=== PATIENT | male | born 2000 | race Two or more races ===

== ENCOUNTER 2021-09-10 17:43 | Emergency (ER) | payer OTHER, SELFPAY ==
[2021-09-10 17:43] VITALS: BP 140/86; PULSE 98; RESP 18; TEMP 36.8; O2SAT 100; BMI 17.9
--- NOTE | 2021-09-10 17:43 | ECG_ITS ---
APPROVED REPORT Exam: Resting ECG HR:90 bpm ECG Measurements Heart Rate 90 AXES NE 133 P 78 QRSd 90 QRS 79 QT 329 T 53 QTc 376 Conclusion SINUS RHYTHM NONSPECIFIC T-WAVE ABNORMALITY BORDERLINE ECG UNCONFIRMED REPORT Electronically signed by : Augusto Sunshine MD 09/12/2021 08:05:25
--- NOTE | 2021-09-10 18:09 | XR_ITS ---
PROCEDURE INFORMATION: Exam: XR Chest Exam date and time: 09/10/2021 6:28 PM Age: 21 years old Clinical indication: Sternal or substernal pain; Additional info: Cp TECHNIQUE: Imaging protocol: Radiologic exam of the chest. Views: 1 view. COMPARISON: No relevant prior studies available. FINDINGS: Lungs: Unremarkable. No consolidation. Pleural spaces: Unremarkable. No pleural effusion. No pneumothorax. Heart/Mediastinum: Unremarkable. No cardiomegaly. Bones/joints: Unremarkable. IMPRESSION: No acute findings.
[2021-09-10 18:15] VITALS: BP 124/79; PULSE 76; RESP 12; O2SAT 98
[2021-09-10 18:23] LABS: Basophils # 0.1 K/mm3 (0-0.2); Basophils % 1.2 % (0.1-2.0); Eosinophils # 0.1 K/mm3 (0.0-0.4); Hematocrit 45.6 % (42.0-52.0); Lymphocytes # 2.6 K/mm3 (0.7-4.5); Lymphocytes % 36.9 % (10-50); Mean Corpuscular HGB Conc 32.8 g/dL (31.8-35.4); Mean Corpuscular Hemoglobin 28.7 pg (27.0-31.2); Mean Corpuscular Volume 87.6 fl (80-94); Mean Platelet Volume 7.9 fl (7.4-10.4); Monocytes # 0.4 K/mm3 (0.1-1.0); Monocytes % 5.9 % (1.7-9.3); Neutrophils # 3.8 K/mm3 (1.8-7.8); Platelet Count 250 K/mm3 (142-424); Red Blood Count 5.21 M/mm3 (4.60-6.20); Red Cell Distribution Width 12.6 % (11.5-17.5)
[2021-09-10 18:40] LABS: Chloride 109 mmol/L (98-107); Potassium 3.4 mmoL/L (3.5-5.1); Sodium 142 mmol/L (136-145)
[2021-09-10 18:43] LABS: Anion Gap 10.4 mEq/L (5-15); Blood Urea Nitrogen 10 mg/dl (9-20); Carbon Dioxide 26 mmol/L (22.0-30.0); Creatinine Clearance Estimated 102 mL/min (50-200); Estimated Glomerular Filt Rate 105 ml/min (>60); GFR (African American) 127 ML/MIN (>60)
[2021-09-10 18:44] LABS: Calcium 9.5 mg/dl (8.4-10.2); Glucose 114 mg/dl (74-100)
[2021-09-10 19:00] VITALS: BP 128/80; PULSE 79; RESP 15; O2SAT 97
--- NOTE | 2021-09-10 19:07 | PC.NURSE ---
Pt c/o JEAN. Tylenol and Ibuprofen offered, but refused by pt because he stated Im immune to them. They don't work for me. I need something stronger . Pt was told that we will notify MD when he returns out of another pt's room.
[2021-09-10 19:10] LABS: Troponin I < 0.01 ng/ml (0.00-0.034)
[2021-09-10 19:30] VITALS: BP 118/82; RESP 10
--- NOTE | 2021-09-10 19:48 | HMH.EDGENADL ---
ED Disposition Clinical Impression: Atypical chest pain Disposition: Home, Self-Care Condition on Discharge: Good Instructions: DI for Atypical Chest Pain Additional Instructions: Follow-up with your physicians at [facility] as arranged. Referrals: Provider,Referral, [Primary Care Provider] - - Critical Care Critical Care Time: No Attestation: On 09/10/21, the high probability of a clinically significant, sudden or life threatening deterioration of the following system(s) required my full and direct attention, intervention and personal management. The time I documented below is in addition to time spent performing reported procedures but includes the following listed in this critical care notation. Medical Decision Making - Medical Records Medical records reviewed: Yes: I reviewed the patient's medical records. MR Comment: I reviewed records from [facility] via [employer]. Reviewed MRI brain which showed asymmetry of the hippocampi and a subtle small area of increased signal in the cerebellum. He recently had a normal EEG. 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 It is benign. Cardiology reports that he has syncopal episodes likely related to migraines and vasovagal syncope and they do not feel further cardiac work-up or intervention was indicated. - Pj Inquiry Pt receiving controlled substance: No Vital Signs: 09/10/21 17:43 09/10/21 18:15 09/10/21 19:00 Temperature 98.3 F Temperature Source Oral Pulse Rate 76 79 Pulse Rate [Right Radial] 98 H Respiratory Rate 18 12 15 Blood Pressure 124/79 128/80 Blood Pressure [Right Arm] 140/86 Blood Pressure Mean [Right Arm] 104 Blood Pressure Source [Right Arm] Automatic Cuff Blood Pressure Position [Right Arm] Sitting 02 Sat by Pulse Oximetry 100 98 97 Oxygen Delivery Method Room Air Room Air 09/10/21 19:30 09/10/21 20:00 Temperature Temperature Source Pulse Rate Pulse Rate [Right Radial] Respiratory Rate 10 L 11 L Blood Pressure 118/82 128/73 Blood Pressure [Right Arm] Blood Pressure Mean [Right Arm] Blood Pressure Source [Right Arm] Blood Pressure Position [Right Arm] 02 Sat by Pulse Oximetry 98 Oxygen Delivery Method Room Air - Lab Data Lab Results 09/10/21 18:00: WBC 7.0, RBC 5.21, Hgb 15.0, Hct 45.6, MCV 87.6, MCH 28.7, MCHC 32.8, RDW 12.6, Plt Count 250, MPV 7.9, Neut % (Auto) 55.0, Lymph % (Auto) 36.9, Tama % (Auto) 5.9, Eos % (Auto) 1.0, Baso % (Auto) 1.2, Neut # (Auto) 3.8, Lymph # (Auto) 2.6, Tama # (Auto) 0.4, Eos # (Auto) 0.1, Baso # (Auto) 0.1 09/10/21 18:00: Sodium 142, Potassium 3.4 L, Chloride 109 H, Carbon Dioxide 26, Anion Gap 10.4, BUN 10, Creatinine 0.90, Estimated Creat Clear 102, Estimated GFR 105, Est GFR ( Amer) 127, Glucose 114 H, Calcium 9.5, Troponin I < 0.01 Result diagrams: 09/10/21 18:00 09/10/21 18:00 Orders (Tests/Meds): ED MEDICATIONS Generic Name Dose Route Start Last Admin Trade Name Freq PRN Reason Stop Dose Admin Sodium Chloride 10 ml 09/10/21 18:09 Sodium Chloride 0.9% 10ml Flush Syringe IV 10/10/21 18:08 NEEDED PRN Maintain IV Site ORDERS Category Date Time Status Troponin I Q3H Lab 09/10/21 21:15 Ordered Troponin I Q3H Lab 09/11/21 00:15 Ordered - Radiology Data #1 Image(s): Chest Image Reviewed: Yes I have reviewed radiologist's interpretation PROCEDURE INFORMATION: Exam: XR Chest Exam date and time: 09/10/2021 6:28 PM Age: 21 years old Clinical indication: Sternal or substernal pain; Additional info: Cp TECHNIQUE: Imaging protocol: Radiologic exam of the chest. Views: 1 view. COMPARISON: No relevant prior studies available. FINDINGS: Lungs: Unremarkable. No consolidation. Pleural spaces: Unremarkable. No pleural effusion. No pneumothorax.
--- NOTE | 2021-09-10 19:50 | PC.NURSE ---
at speaking with pt about POC
[2021-09-10 20:00] VITALS: BP 128/73; RESP 11; O2SAT 98
[2021-09-10 20:28] VITALS: BP 128/73; PULSE 68; RESP 16; TEMP 37.1; O2SAT 97
== END 2021-09-10 20:30 | disposition home or self-care (01) ==
PROVIDERS: Emergency Provider Emergency Medicine
DX: R07.2 Precordial pain (principal); R06.02 Shortness of breath; R20.2 Paresthesia of skin; R55 Syncope and collapse; R10.13 Epigastric pain; I51.9 Heart disease, unspecified; R51.9 Headache, unspecified; M79.10 Myalgia, unspecified site; G89.29 Other chronic pain; G93.9 Disorder of brain, unspecified; F17.290 Nicotine dependence, other tobacco product, uncomplicated
CPT/HCPCS: 71045; 80048; 84484; 85025; 93005; 99285

== ENCOUNTER 2022-11-27 18:23 | Emergency (ER) | payer OTHER, SELFPAY ==
[2022-11-27 18:41] VITALS: BP 136/82; PULSE 91; RESP 19; TEMP 37; O2SAT 100; BMI 19.8
--- NOTE | 2022-11-27 18:45 | XR_ITS ---
PROCEDURE INFORMATION: Exam: XR Chest Exam date and time: 11/27/2022 6:46 PM Age: 22 years old Clinical indication: Cough; Additional info: Cough, congestion TECHNIQUE: Imaging protocol: Radiologic exam of the chest. Views: 2 views. COMPARISON: CR XR CHEST PORTABLE 09/10/2021 6:28 PM FINDINGS: Lungs: No evidence of acute pulmonary disease or infiltrates; lung [place] appear clear. Pleural spaces: No evidence of pleural effusion, pneumothorax, or pleural thickening in the visualized pleural spaces. Heart/Mediastinum: No evidence of mediastinal widening or cardiac silhouette enlargement; the mediastinum and heart appear within normal limits for contour and size. Bones/joints: No evidence of acute osseous abnormalities within the visualized portions of the thoracic spine and ribs. Osseous structures appear appropriate for patient age. IMPRESSION: Negative study. No acute cardiopulmonary abnormalities identified. Osseous structures within the visualized portions of the thoracic spine and ribs show no acute abnormalities and appear appropriate for patient age.
--- NOTE | 2022-11-27 18:46 | EXP.UTC ---
Discharge Plan Disposition Patient Disposition: Home, Self-Care Condition: Good Prescriptions Prescriptions: New cefdinir 300 mg capsule 300 mg PO BID Qty: 20 0RF fluticasone propionate [Flonase Allergy Relief] 50 mcg/actuation spray,suspension 1 - 2 spray intranasal DAILY Qty: 16 0RF Rx Instructions: administer into each nostril daily guaifenesin [Mucinex] 600 mg tablet extended release 12hr 600 mg PO BID PRN (Reason: cough) Qty: 20 0RF No Action Nurtec ODT 75 mg tablet,disintegrating 75 mg PO DAILYP PRN (Reason: Migraine Headache) Referrals Follow up/Referrals: Provider,Referral, MD [Primary Care Provider] - See instructions Activity Restrictions/Add. Instructions Additional Instructions/Restrictions: *Monitor Temp, Over the counter Motrin or Tylenol as directed/as needed Tylenol every 4 hours and Motrin every 6 hours (as long as your family doctor has told you that you can take it) for fever or pain. and straight to ER if unable to lower temp less than 101.0 after medication given *Warm salt water gargles may help to soothe the throat *Throat Lozenges? *Warm fluids like tea with honey may help to soothe the throat? *Sleep elevated *Humidifier/Vaporizer *Flonase 2 sprays in each nostril daily but be aware that it may take 2-3 days before you notice improvement Take medication as prescribed Your throat swab was sent for culture. Those results are typically sent to your primary care. Be sure to follow up in 2-3 days with your family doctor/primary care physician if no improvement so they can review those result and treat if necessary. If you don?t have a primary care doctor, I recommend you get one but in the mean time, you will have to return to a walk in clinic Follow up IMMEDIATELY for new or worsening symptoms or no Noticeable improvement over the next 48-72 hours. 911 for difficulty breathing or swallowing Clinical Impressions Clinical Impression: Bronchitis Sinusitis Qualifiers: Sinusitis location: unspecified location Chronicity: unspecified Qualified Code(s): J32.9 - Chronic sinusitis, unspecified Instructions Patient Instructions: DI for Sinusitis, Sinusitis, Acute Bronchitis Discharge ED Provider: Shelia Hernandez [facility] [place] HPI General Stated complaint: SOA,cough,runny nose,sore throat, lightheaded Mode of Arrival: Ambulatory Source of Information: Patient Limitations: No Limitations Time Seen by Provider: 11/27/22 18:47 Description of Symptoms (Recalled from Triage Doc. by RN): PATIENT C/O HEADACHE, COUGH, CONGESTION, RUNNY NOSE, SNEEZING, BURNING IN CHEST WITH COUGH, AND SORE THROAT X 2 DAYS HEENT Symptoms (Recalled from RN notes): Yes Resp Symptoms (Recalled from RN notes): Yes Skin Symptoms (Recalled from RN notes): No MS Symptoms (Recalled from RN notes): No Functional Status (Recalled from RN notes): WNL History of Present Illness Provider Complaint: Patient states that he hasnt felt well for the last couple of days States that he has been having sinus congestion and pressure, pain and pressure in his ears worse in his left, burning in his chest when he coughs, sore throat that hurts when he swallows. States that this evening he was still feeling bad so he came in to get checked States that he hasnt had fever that he is aware of but worried he may have bronchitis or something Related Data Home Medications Medication Instructions Recorded Confirmed rimegepant 75 mg disintegrating 75 mg PO DAILYP PRN Migraine 11/27/22 11/27/22 tablet (Nurtec ODT) Headache Previous Rx's Medication Instructions Recorded cefdinir 300 mg capsule 300 mg PO BID #20 caps 11/27/22 fluticasone propionate 50 1 - 2 spray intranasal DAILY #16 11/27/22 mcg/actuation nasal grams spray,suspension (Flonase Allergy Relief) guaifenesin 600 mg tablet, 600 mg PO BID PRN cough #20 tabs 11/27/22 extended release 12 hr (Mucinex) Allergies Al
[2022-11-27 19:01] LABS: UTC Strep Screen (Rapid) Negative (Negative)
[2022-11-27 19:32] VITALS: BP 136/82; PULSE 91; RESP 19; TEMP 37; O2SAT 100
== END 2022-11-27 19:38 | disposition home or self-care (01) ==
PROVIDERS: Emergency Provider Nurse Practitioner
DX: J20.9 Acute bronchitis, unspecified (principal); J01.90 Acute sinusitis, unspecified; J45.909 Unspecified asthma, uncomplicated
CPT/HCPCS: 71046; 87880; 99204; 99212; G0463

== ENCOUNTER 2023-05-14 10:53 | Emergency (ER) | payer OTHER, SELFPAY ==
[2023-05-14 11:05] VITALS: BP 122/78; PULSE 78; RESP 18; TEMP 36.8; O2SAT 100; BMI 19.8
[2023-05-14 11:19] VITALS: BP 122/78; PULSE 78; RESP 18; TEMP 36.8; O2SAT 100
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
== END 2023-05-14 11:24 | disposition home or self-care (01) ==
PROVIDERS: Emergency Provider Nurse Practitioner
DX: M79.18 Myalgia, other site (principal); V49.40XA Driver injured in collision with unspecified motor vehicles in traffic accident, initial encounter
CPT/HCPCS: 99211; 99213; G0463

== ENCOUNTER 2023-09-09 15:39 | Emergency (ER) | payer OTHER, SELFPAY ==
--- NOTE | 2023-09-09 15:56 | EXP.UTC ---
Discharge Plan Disposition Patient Disposition: Home, Self-Care Condition: Good Prescriptions Prescriptions: New prednisone 20 mg tablet 20 mg PO BID 5 Days Qty: 10 0RF amoxicillin-pot clavulanate 875-125 mg Tablet 1 tab PO Q12H Qty: 20 0RF No Action Nurtec ODT 75 mg tablet,disintegrating 75 mg PO DAILYP PRN (Reason: Migraine Headache) Referrals Follow up/Referrals: Provider,Referral, MD [Primary Care Provider] - See instructions Clinical Impressions Clinical Impression: Bilateral otitis media Instructions Patient Instructions: DI for Otitis Media (Middle Ear Infection)-Child Print Language Print Language: Maltese Discharge ED Provider: Diane Diaz [facility] [place] HPI General Stated complaint: ear ache sore throat Time Seen by Provider: 09/09/23 16:18 History of Present Illness Provider Complaint: Bilateral ear pain, sore throat, cough X 1 week. Body aches and chills. No fever. Onset (ago): week(s) (1) Relieving factors: none Exacerbating factors: none Associated symptoms: denies other symptoms Treatments prior to arrival: none Related Data Home Medications ?Medication ?Instructions ?Recorded ?Confirmed rimegepant 75 mg disintegrating 75 mg PO DAILYP PRN Migraine 11/27/22 05/14/23 tablet (Nurtec ODT) Headache Previous Rx's ?Medication ?Instructions ?Recorded amoxicillin 875 mg-potassium 1 tab PO Q12H #20 tabs 09/09/23 clavulanate 125 mg tablet prednisone 20 mg tablet 20 mg PO BID 5 days #10 tabs 09/09/23 Allergies Allergy/AdvReac Type Severity Reaction Status Date / Time No Known Allergies Allergy Verified 09/10/21 17:54 [facility] Disclaimer: The information contained in this section may have been updated after the patient was seen, as this information can be updated by other users. Medical History (Updated 09/09/23 @ 16:20 by TYREE Zuluaga) Migraine Asthma Social History (Updated 11/27/22 @ 19:31 by Shelia Hernandez APRN) Smoking Status: Unknown if ever smoked alcohol intake: never current occupational status: employed Travel in the last 8 weeks: None ROS Obtained: Yes All systems reviewed & no additional complaints except as documented Constitutional Constitutional: Reports body ache and Reports chills ENT Ears, Nose, Mouth, and Throat: Reports nasal congestion Physical Exam General General appearance: alert and in no apparent distress Head Head exam: atraumatic, normocephalic and normal inspection Eye Eye exam: Present normal appearance, PERRL and EOMI ENT ENT exam: Present normal exam, normal oropharynx, mucous membranes moist and normal external ear exam Expanded ENT Exam TM/Canal exam: Bilateral TM: erythema and effusion Neck Neck exam: Present normal inspection, full ROM and trachea midline; Absent meningismus or lymphadenopathy Chest Chest inspection: Present normal inspection and symmetric chest wall rise; Absent tenderness Respiratory Respiratory exam: Present normal lung sounds bilaterally; Absent respiratory distress Cardiovascular Cardiovascular exam: Present regular rate and normal rhythm; Absent JVD Abdominal Exam Abdominal exam: Present soft and normal bowel sounds; Absent distention, tenderness or guarding Extremities Exam Extremities exam: Present normal inspection, full ROM and normal capillary refill; Absent calf tenderness Back Exam Back exam: Present normal inspection; Absent tenderness Neurological Exam Neurological exam: Present alert and oriented X3 Psychiatric Psychiatric exam: Present normal affect and normal mood Skin Skin exam: Present warm, dry, intact and normal color Lymphatic Lymphatic Findings: no adenopathy Medical Decision Making Pj Inquiry Pt receiving controlled substance: No
[2023-09-09 16:02] VITALS: BP 119/74; PULSE 84; RESP 18; TEMP 37.2; O2SAT 98
[2023-09-09 16:11] LABS: UTC Strep Screen (Rapid) Negative (Negative)
[2023-09-09 16:21] VITALS: BP 119/74; PULSE 84; RESP 18; TEMP 37.2; O2SAT 98
== END 2023-09-09 16:23 | disposition home or self-care (01) ==
PROVIDERS: Emergency Provider Physician Assistant
DX: H66.93 Otitis media, unspecified, bilateral (principal); R07.0 Pain in throat; R05.9 Cough, unspecified
CPT/HCPCS: 87880; 99212; 99214; G0463

== ENCOUNTER 2024-10-27 18:48 | Emergency (ER) | payer SELFPAY ==
[2024-10-27 18:55] VITALS: BP 138/91; PULSE 98; RESP 16; TEMP 37; O2SAT 98; BMI 20.7
--- NOTE | 2024-10-27 18:59 | ED_ITS ---
Discharge Plan Disposition Patient Disposition: Home, Self-Care Prescriptions Prescriptions: New sulfamethoxazole-trimethoprim [Bactrim DS] 800-160 mg tablet 1 tab PO BID 7 Days Qty: 14 0RF No Action prednisone 20 mg tablet 20 mg PO BID 5 Days Qty: 10 0RF amoxicillin-pot clavulanate 875-125 mg Tablet 1 tab PO Q12H Qty: 20 0RF Nurtec ODT 75 mg tablet,disintegrating 75 mg PO DAILYP PRN (Reason: Migraine Headache) Referrals Follow up/Referrals: Provider,Referral, MD [Primary Care Provider, Medical] - See instructions Activity Restrictions/Add. Instructions Additional Instructions/Restrictions: At this time it was felt you are safe to be discharged home. If new or worsening symptoms please do not hesitate to return the emergency department. Please take antibiotics as prescribed. Clinical Impressions Clinical Impression: Cellulitis, Bite Instructions Patient Instructions: DI for Skin Abscess Print Language Print Language: Scottish Discharge ED Provider: Dylan Ro General Adult HPI General Chief complaint: Skin/Abscess/Foreign Body Stated complaint: bite on left leg,three days ago Time Seen by Provider: 10/27/24 18:53 Mode of Arrival: Ambulatory Source of Information: Patient Description of Symptoms (Recalled from ER Triage Doc. by RN): pt presents with a small rash on his anterior thigh. pt states he went fishing 3d ago and thinks he was bit by a spider. pt did not see any insect. pt states it juarez and itches History of Present Illness HPI narrative: Patient is a 24-year-old male with no pertinent past medical history presents emergency department for evaluation of a rash on his left anterior thigh. By something unknown a few days ago and it has been spreading causing him to become concerned presents here for continued evaluation. No other acute complaints at this time. Please note that above description of symptoms, in this electronic medical record under categorization of recalled from ER triage doctor by RN are reflective of an initial nursing assessment, however, is not reflective of my full history and physical exam that was personally taken and clarified. Consequentially, this preceding description of symptoms, which may include the patient's categorized chief complaint in the EMR, do not reflect my personal clinical impression, and the ultimate description of history of present illness and patient stated complaints should be deferred to this section of the note. Unless stated otherwise or congruent with this section of the note, additional signs, symptoms, or incongruence should be interpreted as inaccurate with my clinical impression. Related Data Home Medications ?Medication ?Instructions ?Recorded ?Confirmed rimegepant 75 mg disintegrating 75 mg PO DAILYP PRN Mi graine 11/27/22 05/14/23 tablet (Nurtec ODT) Headache Previous Rx's ?Medication ?Instructions ?Recorded amoxicillin 875 mg-potassium 1 tab PO Q12H #20 tabs clavulanate 125 mg tablet prednisone 20 mg tablet 20 mg PO BID 5 days #10 tabs 09/09/23 sulfamethoxazole 800 1 tab PO BID cellulitis 7 da ys #14 10/27/24 mg-trimethoprim 160 mg tablet tabs (Bactrim DS) Allergies Allergy/AdvReac Type Severity Reaction Status Date / Time No Known Allergies Allergy Verified 09/10/21 17:54 [facility] Disclaimer: The information contained in this section may have been updated after the patient was seen, as this information can be updated by other users. Medical History (Updated 10/27/24 @ 18:59 by Dylan Ro MD) Migraine Asthma Social History (Updated 11/27/22 @ 19:31 by Shelia Hernandez APRN) Smoking Status: Current every day smoker alcohol intake: never current occupational status: employed Travel in the last 8 weeks?: None Have you lived/traveled outside US in past 30 days?: No Contact w/someone who lives/traveled outside US past 30 days?: No Exposure to someone with infectious disease in past 14 days?: No Do you have a fever (greater than 100.4 F or 38 C)?: No Have you tested positive for COVID-19?: No Exposed to someone with COVID-19 in past 14 days?: No Do you have a sore throat?: No Do you have a cough?: No Do you have any weakness?: No Do you have any diarrhea?: No Are you experiencing any unusual bleeding?: No Do you have any muscle aches/pain?: No Do you have any abdominal pain?: No Are you experiencing loss of taste or smell?: No Other Medical History Have you received the Flu Vaccine for this season: No Have you received the Pneumonia Vaccine: No ROS Obtained: Yes Systems reviewed as appropriate & no additional complaints except as documented Physical Exam General General appearance: alert and in no apparent distress Head Head exam: atraumatic and normocephalic Eye Eye exam: Present PERRL and EOMI ENT ENT exam: Present mucous membranes moist Neck Neck exam: Present normal inspection Chest Chest inspection: Present normal inspection and symmetric chest wall rise Respiratory Respiratory exam: Absent respiratory distress Cardiovascular Cardiovascular exam: Present regular rate and normal rhythm Extremities Exam Extremities exam: Present other (3 cm serpiginous rash over the left anterior thigh without fluctuance or central clearing) Neurological Exam Neurological exam: Present alert Psychiatric Psychiatric exam: Present normal affect Skin Skin exam: Present warm and dry Medical Decision Making Medical Records Screening: Per USPSTF and CDC recommendations, given the prevalence of disease in our region, it is our hospital?s policy to screen for HIV and viral Hepatitis for all patients aged 18 and over and those with ongoing risk factors. Pj Inquiry Pt receiving controlled substance: No Vital Signs: 10/27/24 18:55 Temperature 98.6 F Temperature Source Oral Pulse Rate [Left] 98 H Respiratory Rate 16 Blood Pressure [Right Arm] 138/91 H Blood Pressure Mean [Right Arm] 106 Blood Pressure Source [Right Arm] Automatic Cuff Blood Pressure Position [Right Arm] Sitting 02 Sat by Pulse Oximetry 98 Oxygen Delivery Method Room Air Orders (Tests/Meds): ED MEDICATIONS Discontinued Medications Generic Name Dose Route Start Last Admin Trade Name Freq PRN Reason Stop Dose Admin Trimethoprim/Sulfamethoxazole 1 each 10/27/24 18:56 Sulfa/Trimethoprim 1 Tablet PO 10/27/24 18:57 ONCE ONE Medical Decision Narrative: In summary patient is 24-year-old male past medical history of scrota above presents emergency department for evaluation of a lesion over his left anterior thigh. Patient is hemodynamically stable nontoxic-appearing upon arrival, afebrile. Patient has a small area of erythema over his thigh without central clearing consistent with mildly infected arthropod bite versus cellulitis. There is no fluctuance therefore workup with labs and imaging and incision and drainage was considered but will be deferred. Patient was given a dose of Bactrim for empiric MRSA coverage and will be discharged with course of Bactrim was given return precautions. Purchasing And Fiscal Clerk disclaimer Much of this encounter note is an electronic safety clothing and equipment developer spoken language to printed text. Electronic safety clothing and equipment developer of the spoken language may permit errors. Although I have reviewed the note, some errors may still exist. Critical Care Critical Care Time Critical Care Time: No
--- OUTSIDE RECORDS SUMMARY | 2024-10-27 19:01 | XMS_ITS | Clinical Summary ---
Author Organization [facility] Address [address] [place] [address] Phone Care Team Providers Care Kinesiology Internship Name Role Phone Zia Bernal MD Primary Care Physician [phone] Conditions or Problems Problem Name Problem Code Onset Date Status Entry Date Provider Comment Standard Description Annotate U R I 14924784 (SNOMED CT) Inactive Nasim Espinal MD Upper respiratory infection Cough 66873050 (SNOMED CT) Inactive Nasim Espinal MD Cough U R I 03145903 (SNOMED CT) Inactive Nasim Espinal MD Upper respiratory infection Medications Medication Instructions Start Date Stop Date Generic Name NDC Provider MEDROL 4 MG TBPK USE DIRECTED METHYLPREDNISOLONE [id number] Nasim Espinal MD ZITHROMAX Z-BRANDY 250 MG TABS TAKE 2 TABLETS BY MOUTH ON DAY 1 THEN 1 TABLET BY MOUTH DAILY FOR 4 DAYS (DAY 2-5) AZITHROMYCIN [id number] Nasim Espinal MD ZITHROMAX Z-BRANDY 250 MG TABS TAKE 2 TABLETS BY MOUTH ON DAY 1 THEN 1 TABLET BY MOUTH DAILY FOR 4 DAYS (DAY 2-5) AZITHROMYCIN [id number] Nasim Espinal MD LORATADINE 10 MG TABS TAKE 1 TABLET BY MOUTH 1 TIME A DAY NEEDED FOR ALLERGIES LORATADINE [id number] Nasim Espinal MD PREDNISONE 20 MG TABS TAKE 1 TABLET BY MOUTH 2 TIMES A DAY FOR 5 DAYS PREDNISONE [id number] Nasim Espinal MD Medications Administered No information available. Allergies, Adverse Reactions, Alerts Observed no known allergies at Results No information available. Plan of Care No information available. Procedures Code Procedure Name Date Entry Date [facility]-[id number] Medication Reconciliation [facility]-[id number] Medication Reconciliation Vital Signs Date Name Value Unit Description BMI (Body Mass Index) 20.73 kg/m2 Bod y Mass Index (Ratio) Body Temperature 98.8 [degF] temperat ure E&M Body Temperature 37.11 Jyoti temperat ure in centigrade E&M BP Diastolic 74 mm[Hg] blood pressu re, diastolic BP Systolic 116 mm[Hg] blood pressur e, systolic BSA (Body Surface Area) 1.82 b teofilo surface area Heart Rate 79 /min pulse rate Height 179.07 cm height in cent imeters E&M Height 70.5 [in_us] height E&M Weight Measured 146 [lb_av] weight E& M Weight Measured 146 [lb_av] weight E& M Weight Measured 66.36 kg weight in kilograms E&M Respiratory Rate 24 /min respirat ory rate E&M Immunizations Vaccine Administration Date Standard Description CVX Co de Dose Pentacel Intramuscular Suspension Reconstituted Pentacel Intramuscular Suspension Reconstituted 120 Unknown Daptacel Intramuscular Suspension 11-27- Daptacel Intramuscular Suspension 1015- 106 Unknown Ipol Injection Injectable Ipol Injection Injectable 10 Unknown ProQuad Subcutaneous Injectable ([facility] [address]-23) ProQuad Subcutaneous Injectable ([facility] [address]-50) 94 Unknown M-M-R II Subcutaneous Injectable M-M-R II Subcutaneous Injectable 03 Unknown Advance Directives Directive Description Start Date DISCUSSED - NO DECISION MADE
[2024-10-27] MEDS: SULFA/TRIMETHOPRIM 1 TABLET 1 EACH PO (19:02)
--- OUTSIDE RECORDS SUMMARY | 2024-10-27 19:02 | XMS_ITS | Encounter Summary ---
Author Organization Healthcare Address [address] [place] [address] Care Team Providers Care Car Worker Helper Name Role Phone Corina Price APRN Unavailable [phone] Pcp, No Primary Care Provider Unavailabl e Camryn Cruz Unavailable Reason for Visit * Reason Comments Med Refill Encounter Details Date Type Department Care Team (Late st Contact Info) Description 10/05/2022 Refill [place] [facility] [address] [place] [address] Camryn Cruz, PA [address] [place] [address] Migraine without aura and without status migrainosus, not intractable Social History Tobacco Use Types Packs/Day Years Used Date Smoking Tobacco: Former Cigarettes Smokeless Tobacco: Former Comments:former vape used fo r 7 months Alcohol Use Standard Drinks/Week Comments Never 0 (1 standard drink = 0.6 oz pure alcohol) only dranked once when turning 19 PHQ-2 Answer Date Recorded Patient Health Questionnaire-2 Score 0 03/31/2021 CAGE ASSESSMENT Answer Date Recorded Cage unable to access Not on file 12/01/2021 Cage max number of drinks Not on file 2021 Cage Beverages a week Not on file 12/01/2021 Have you ever felt you should CUT down on your d rinking? 0 12/01/2021 Have you been ANNOYED by people criticizing your drinking? 0 12/01/2021 Have you felt GUILTY about your drinking? 0 12/01/2021 Have you had a drink first t ramu in the morning (EYE-MANAGER SHOP) to steady your nerves or to get rid of a hangover? 0 12/01/2021 CAGE Questionnaire Score 0 022 Sex and Gender Information Value Date Recorded Sex Assigned at Not on file Legal Sex Male 9:45 PM EDT Gender Identity Not on file Sexual Orientation Not on file documented as of this encounter Miscellaneous Notes * Telephone Encounter - Mine Stanley - 10/06/2022 9:42 AM EDT I ashlee pt on 10/11 @ 9 with you. I also will send him a [employer] message. documented in this encounter Plan of Treatment Not on file documented as of this encounter Visit Diagnoses Diagnosis Migraine without aura and without status migrainosus, not intractable documented in this encounter Additional Health Concerns Assessment Noted Time A fall risk assessment has been complete d for the patient 01/03/2022 12:02 PM EST documented as of this encounter Care Teams Car Worker Helper Relationship Specialty Start Date End Date Pcp, Cristal [address] [place] [address] PCP - General Family Medicine 09/29/21 Corina Price APRN [address] [facility] [address] [place] [phone] Nurse Practitioner Neurology 09/29/21 Camryn Cruz PA [address] [place] [address] Physician Export Freight Specialist 09/29/21 documented as of this encounter
--- OUTSIDE RECORDS SUMMARY | 2024-10-27 19:02 | XMS_ITS | Encounter Summary ---
Author Organization Healthcare Address [address] [place] [address] Care Team Providers Care Nuclear Criticality Safety Engineer Name Role Phone Corina Price APRN Unavailable [phone] Pcp, No Primary Care Provider Unavailabl e Camryn Cruz Unavailable [phone] Reason for Visit * Reason Comments Med Refill Encounter Details Date Type Department Care Team (Late st Contact Info) Description 11/08/2022 Refill [place] [facility] [address] [place] [address] Camryn Cruz PA [address] [place] [address] Migraine without aura and without [...] drink first t ramu in the morning (EYE-SUGAR COATING HAND) to steady your nerves or to get rid of a hangover? 0 12/01/2021 CAGE Questionnaire Score 0 022 Sex and Gender Information Value Date Recorded Sex Assigned at Not on file Legal Sex Male 9:45 PM EDT Gender Identity Not on file Sexual Orientation Not on file documented as of this encounter Miscellaneous Notes * Telephone Encounter - Taisha Cole - 11/09/2022 2:56 PM EDT *scheduled pt for 11/21/2022 f/up, called pt, no answer, LVM expressing the importance of keeping this appt to continue with Rx refills... documented in this encounter Plan of Treatment Not on file documented as of this encounter Visit Diagnoses Diagnosis Migraine without aura and without status migrainosus, not intractable documented in this encounter Additional Health Concerns Assessment Noted Time A fall risk assessment has been complete d for the patient 01/03/2022 12:02 PM EST documented as of this encounter Care Teams Nuclear Criticality Safety Engineer Relationship Specialty Start Date End Date Pcp, Cristal [address] [place] [address] PCP - General Family Medicine 09/29/21 Corina Price APRN [address] [facility] [place] [address] Nurse Practitioner Neurology 09/29/21 Camryn Cruz PA [address] [place] [address] Physician Driver Education Instructor 09/29/21 documented as of this encounter
--- OUTSIDE RECORDS SUMMARY | 2024-10-27 19:02 | XMS_ITS | Clinical Summary ---
Author Organization [facility] Address [address] [place] [address] Care Team Providers Care Associate Director Finance Name Role Phone Corina Price APRN Unavailable [phone] Pcp, No Primary Care Provider UnavailCamryn Montana Unavailable [phone] Allergies No known active allergies Medications zonisamide (Zonegran) 100 MG capsule Take 1 capsule (100 mg total) by mouth every night. Take 1 capsule (100 mg) by mouth every night x 1 week, thereafter 2 capsules (200 mg) every night 30 capsule 5 2 Active Nurtec 75 MG tablet dispersibleIndic ations:Migraine without aura and without status migrainosus, not intractable DISSOLVE 1 TABLET IN MOUTH ONCE DAILY IF NEEDED FOR MIGRAINE. 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 0 12/01/2021 CAGE Questionnaire Score 0 022 Sex and Gender Information Value Date Recorded Sex Assigned at Not on file Legal Sex Male 9:45 PM EDT Gender Identity Not on file Sexual Orientation Not on file Last Filed Vital Signs Vital Sign Reading Time Taken Comments Blood Pressure 100/70 01/03/2022 12:00 PM EST Pulse 98 01/03/2022 12:00 PM EST Temperature 36.6 C (97.8 F) 12/03/2021 7:52 AM EDT Respiratory Rate 18 12/03/2021 7:52 AM EDT Oxygen Saturation 97% 01/03/2022 12:00 PM EST Inhaled Oxygen Concentration - - Weight 60.9 kg (134 lb 4.2 oz) 01/03/2022 12:00 PM EST Height 177.8 cm (5' 10 ) 01/03/2022 12:00 PM EST Body Mass Index 19.26 01/03/2022 12:00 PM EST Plan of Treatment Health Maintenance Due Date Last Done Comments [facility]-Infant/Child/Adol SDOH Screenings 1998 [facility]-Hepatitis B Vaccines (3 of 3 - 3-dose series) 1998 1998, 1998 [facility]-Varicella Vaccines (2 of 2 - 2-dose childhood series) 2002 06/22/2000, 06/22/2000 [facility]-IPV Vaccines (3 of 3 - 4-dose series) 08/02/2002 02/01/2002, 06/22/2000, 1998, Additional history exists [facility]-DTaP,Tdap,and Td Vaccines (6 - Tdap) 2009 02/01/2002, 06/22/2000, 1998, Additional history exists [facility]- SDOH Screenings 01/31/2016 [facility]-Adult SDOH Screenings 01/31/2016 [facility]-Depression Screening 03/31/2022 03/31/2021 [id number] Vaccine ( season) 2024 [facility]-Influenza Vaccine (#1) 2024 [facility]-Zoster Vaccines (1 of 2) 01/31/2048 06/22/2000, 06/22/2000 [facility]-HIB Vaccines Completed 06/22/2000, 08/1998, 1998, Additional history exists HPV Vaccines Completed 07/04/2013, 07/2013, 12/31/2012 [facility]-Hepatitis A Vaccines Completed 07/04/2013, 12/14 [facility]-HIV Screening Completed 01/27/2021 [facility]-Hepatitis C Screening Completed 01/27/2021 [facility]-Pneumococcal Vaccine: Pediatrics (0 to 5 Years) and At-Risk Patients (6 to 49 Years) Aged Out No longer eligible based on patient's age to complete this topic [facility]-Rotavirus Vaccines Aged Out No lo nger eligible based on patient's age to complete this topic Procedures Procedure Name Priority Date/Time Associated Diagnosis Comments HEPATITIS C ANTIBODY - ED W/REFLEX TO HCV QUANT PCR STAT 01/27/2021 5:12 PM EST HIV 1/2 ANTIBODY/ANTIGEN SCREEN WITH REFLEX TO HIV I/II DIFFERENTIATION STAT 01/27/2021 5:12 PM EST from Last 3 Months or Most Recently Relevant to Health Maintenance Results * HIV 1 & 2 Antibody/Antigen Screen (01/27/2021 5:12 PM EST) HIV 1 & 2 Antibody/Anti gen Screen Nonreactive Nonreactive 01/27/2021 6:48 PM EST [facility] Blood Venous blood specimen / Unknown Venipuncture / Unknown 01/27/2021 5:12 PM EST 01/27/2021 5:27 PM EST Keanu Hickman MD LAB BLOOD ORDERABLES Final Result [facility] [address] [place] [address] * [place] Hepatitis C Antibody (01/27/2021 5:12 PM EST) Hepatitis C Antibody Negative Negative 01/27/2021 6:46 PM EST [facility] Blood Venous blood specimen / Unknown Venipuncture / Unknown 01/27/2021 5:12 PM EST 01/27/2021 5:26 PM EST Keanu Hickman MD LAB BLOOD ORDERABLES Final Result Performing Organization Address City/[facility]/ZIP Co de Phone Number [facility] [address] [place] [address] from Last 3 Months or Most Recently Relevant to Health Maintenance Insurance [employer]ICA[employer] Advance Directives * Full Code (Latest Code Status on File) Date Activated Date Inactivated Comments 12/01/2021 10:52 AM 12/03/2021 7:36 PM Question Answer Comments Patient has decision-making capacity? Yes Care Teams Associate Director Finance Relationship Specialty Start Date End Date Pcp, No [address] [place] [address] PCP - General Family Medicine 09/29/21 Corina Price APRN [address] [facility] [place] [address] Nurse Practitioner Neurology 09/29/21 Camryn Cruz PA [address] [address] Physician Telegraph Office Route Aide 09/29/21
[2024-10-27 19:06] VITALS: BP 123/73; PULSE 85; RESP 16; TEMP 36.7; O2SAT 97
== END 2024-10-27 19:10 | disposition home or self-care (01) ==
PROVIDERS: Emergency Provider Emergency Medicine
DX: T14.8XXA Other injury of unspecified body region, initial encounter (principal); L03.90 Cellulitis, unspecified; F17.210 Nicotine dependence, cigarettes, uncomplicated
CPT/HCPCS: 99282

== ENCOUNTER 2024-11-06 00:27 | Emergency (ER) | payer SELFPAY ==
--- NOTE | 2024-11-06 00:35 | XR_ITS ---
PROCEDURE INFORMATION: Exam: XR Left Hand Exam date and time: 11/06/2024 12:49 AM Age: 24 years old Clinical indication: Injury or trauma; Other: Dog bite; Hand; Left; Additional info: Dog bite near left 5th mcp joint TECHNIQUE: Imaging protocol: Radiologic exam of the left hand. Views: 1 or 2 views. Total images: 2 COMPARISON: No relevant prior studies available. FINDINGS: Bones/joints: No acute fracture or joint dislocation. No concerning bone lesions. Unremarkable joint spaces. Soft tissues: Minor soft tissue emphysema between the base of the 4th and 5th fingers. No radiopaque foreign body. IMPRESSION: 1. Soft tissue emphysema in keeping with penetrating trauma between the base of the 4th and 5th fingers. 2. No acute osseous abnormality. 3. No radiopaque foreign body.
--- OUTSIDE RECORDS SUMMARY | 2024-11-06 00:35 | XMS_ITS | Clinical Summary ---
Author Organization [employer] [facility] Address [address] [place] [address] Phone Care Team Providers Care Senior Sharepoint Architect Name Role Phone Zia Bernal MD Primary Care Physician [phone] Conditions or Problems Problem Name Problem Code Onset Date Status Entry Date Provider Comment Standard Description Annotate U R I [id number] (SNOMED CT) Inactive Nasim Espinal MD Upper respiratory infection Cough 54303834 (SNOMED CT) Inactive Nasim Espinal MD Cough U R I 75384111 (SNOMED CT) Inactive Nasim Espinal MD Upper respiratory infection Medications Medication Instructions Start Date Stop Date Generic Name NDC Provider MEDROL 4 MG TBPK USE DIRECTED METHYLPREDNISOLONE [id number] Nasim Espinal MD ZITHROMAX Z-BRANDY 250 MG TABS TAKE 2 TABLETS BY MOUTH ON DAY 1 THEN 1 TABLET BY MOUTH DAILY FOR 4 DAYS (DAY 2-5) AZITHROMYCIN 87287827759 Nasim Espinal MD ZITHROMAX Z-BRANDY 250 MG TABS TAKE 2 TABLETS BY MOUTH ON DAY 1 THEN 1 TABLET BY MOUTH DAILY FOR 4 DAYS (DAY 2-5) AZITHROMYCIN 59707425681 Nasim Espinal MD LORATADINE 10 MG TABS TAKE 1 TABLET BY MOUTH 1 TIME A DAY NEEDED FOR ALLERGIES LORATADINE 42431270816 Nasim Espinal MD PREDNISONE 20 MG TABS TAKE 1 TABLET BY MOUTH 2 TIMES A DAY FOR 5 DAYS PREDNISONE [id number] Nasim Espinal MD Medications Administered No information available. Allergies, Adverse Reactions, Alerts Observed no known allergies at Results No information available. Plan of Care No information available. Procedures Code Procedure Name Date Entry Date [facility]-[id number] Medication Reconciliation [facility]-[id number] Medication Reconciliation Vital Signs Date Name Value [...] Injection Injectable 10 Unknown ProQuad Subcutaneous Injectable ([facility] [address]-71) ProQuad Subcutaneous Injectable ([facility] [address]-39) 94 Unknown M-M-R II Subcutaneous Injectable M-M-R II Subcutaneous Injectable 03 Unknown Advance Directives Directive Description Start Date DISCUSSED - NO DECISION MADE
[2024-11-06 00:38] VITALS: BP 136/86; PULSE 100; RESP 16; TEMP 37; O2SAT 100; BMI 19.0
--- NOTE | 2024-11-06 00:46 | [facility].EDGENADL ---
Discharge Plan Disposition Patient Disposition: Home, Self-Care Condition: Good Prescriptions Prescriptions: New amoxicillin-pot clavulanate 875-125 mg tablet 1 tab PO BID Qty: 10 0RF No Action prednisone 20 mg tablet 20 mg PO BID 5 Days Qty: 10 0RF amoxicillin-pot clavulanate 875-125 mg Tablet 1 tab PO Q12H Qty: 20 0RF sulfamethoxazole-trimethoprim [Bactrim DS] 800-160 mg tablet 1 tab PO BID 7 Days Qty: 14 0RF Nurtec ODT 75 mg tablet,disintegrating 75 mg PO DAILYP PRN (Reason: Migraine Headache) Referrals Follow up/Referrals: Provider,Referral, MD [Primary Care Provider, Medical] - See instructions Activity Restrictions/Add. Instructions Additional Instructions/Restrictions: You were evaluated in the ER and are believed to be appropriate for discharge at this time. Take prescribed antibiotics as directed, do not skip doses, do not stop taking early. Use the provided bacitracin ointment on the wound twice daily. Shower/bathe like normal. Keep the wounds clean and dry. Monitor for signs of infection. Follow-up with your primary care doctor for reevaluation in 2 to 3 days. Return to the ER with any new, worsening, or otherwise concerning symptoms Clinical Impressions Clinical Impression: Dog bite of left hand Instructions Patient Instructions: Animal Bites Print Language Print Language: Angolan Discharge ED Provider: Brandy Bernard General Adult HPI General Chief complaint: Animal Bite Stated complaint: dog bite Time Seen by Provider: 11/06/24 00:29 Mode of Arrival: Ambulatory Source of Information: Patient Description of Symptoms (Recalled from ER Triage Doc. by RN): Pt was trying to break his and his spouse dogs from fighting and got bite to right hand. History of Present Illness HPI narrative: 24-year-old male who reports a history of asthma presents to the ER with dog bite to the left hand. Patient and spouse broke up a dog fight between their 2 medium size female dogs. Dogs are both fully vaccinated including rabies vaccines. Patient shows me a small puncture wound between his left pinky and left ring finger stating that area is sore, he also has superficial wound on the left forearm and states it is sore to move the left wrist though he did not fall on it or sustain other injury. He does not recall the last time he had a tetanus shot. No known drug allergies. No numbness, tingling, or weakness. No other complaints or concerns. Related Data Home Medications ?Medication ?Instructions ?Recorded ?Confirmed rimegepant 75 mg disintegrating 75 mg PO DAILYP PRN Migraine 11/27/22 05/14/23 tablet (Nurtec ODT) Headache Previous Rx's ?Medication ?Instructions ?Recorded amoxicillin 875 mg-potassium 1 tab PO Q12H #20 tabs 09/09/23 clavulanate 125 mg tablet prednisone 20 mg tablet 20 mg PO BID 5 days #10 tabs 09/09/23 sulfamethoxazole 800 1 tab PO BID cellulitis 7 days #14 10/27/24 mg-trimethoprim 160 mg tablet tabs (Bactrim DS) amoxicillin 875 mg-potassium 1 tab PO BID #10 tabs 11/06/24 clavulanate 125 mg tablet Allergies Allergy/AdvReac Type Severity Reaction Status Date / Time No Known Allergies Allergy Verified 09/10/21 17:54 [facility] Disclaimer: The information contained in this section may have been updated after the patient was seen, as this information can be updated by other users. Medical History (Updated 11/06/24 @ 00:44 by Brandy Bernard MD) Migraine Asthma Social History (Updated 11/27/22 @ 19:31 by Shelia Hernandez APRN) Smoking Status: Current every day smoker alcohol intake: never current occupational status: employed Travel in the last 8 weeks?: None Other Medical History Have you received the Flu Vaccine for this season: No Have you received the Pneumonia Vaccine: No ROS Obtained: Yes Systems reviewed as appropriate & no additional complaints except as documented Per HPI Physical Exam General General appearance: alert and in no apparent distress Head Head exam: atraumatic and normocephalic Eye Eye exam: Present PERRL and EOMI ENT ENT exam: Present mucous membranes moist Neck Neck exam: Present normal inspection and full ROM Chest Chest inspection: Present symmetric chest wall rise Respiratory Respiratory exam: Absent respiratory distress or stridor Cardiovascular Cardiovascular exam: Present regular rate and normal rhythm Extremities Exam Extremities exam: Present full ROM and normal capillary refill; Absent joint swelling Expanded Upper Extremity Exam Left: Hand L/R back image:  1. 2 mm puncture wound, hemostatic, not through and through, range of motion is painful but full, neurovascularly intact L/R Arms Top View:  1. 2 cm superficial abrasion, hemostatic, no evidence of deep structure injury L/R Arms Bottom View:  1. 2 cm superficial abrasion, hemostatic, no evidence of deep structure injury Comment: Neurovascularly intact with full range of motion though movement of the left wrist causes discomfort in the forearm related to the abrasion bite injury proximal to the wrist. Range of motion of the left pinky is full but painful, neurovascularly intact throughout Neurological Exam Neurological exam: Present alert and oriented X3; Absent motor sensory deficit Psychiatric Psychiatric exam: Present normal affect and normal mood Skin Skin exam: Present warm and dry Medical Decision Making Medical Records Medical records reviewed: Yes I reviewed the patient's medical records. Screening: Per USPSTF and CDC recommendations, given the prevalence of disease in our region, it is our hospital?s policy to screen for HIV and viral Hepatitis for all patients aged 18 and over and those with ongoing risk factors. Pj Inquiry Pt receiving controlled substance: No Vital Signs: 11/06/24 00:38 11/06/24 01:11 Temperature 98.6 F 97.5 F L Temperature Source Oral Oral Pulse Rate 87 Pulse Rate [Left] 100 H Respiratory Rate 16 16 Blood Pressure 128/81 Blood Pressure [Right Arm] 136/86 Blood Pressure Mean [Right Arm] 102 Blood Pressure Source Automatic Cuff Blood Pressure Source [Right Arm] Automatic Cuff Blood Pressure Position Sitting Blood Pressure Position [Right Arm] Sitting 02 Sat by Pulse Oximetry 100 Oxygen Delivery Method Room Air Room Air Orders (Tests/Meds): ED MEDICATIONS Discontinued Medications Generic Name Dose Route Start Last Admin Trade Name Freq PRN Reason Stop Dose Admin Amoxicillin/Clavulanate Potassium 1 each 11/06/24 00:35 11/06/24 00:52 Amoxicillin/Clavulanate Potassium 875/125mg Tablet PO 11/06/24 00:36 1 each ONCE ONE Administration Bacitracin 1 gm 11/06/24 00:45 11/06/24 01:03 Bacitracin Zinc Oint 30gm Tube TP 11/06/24 00:46 1 gm ONCE ONE Administration Tetanus/Reduced Diphtheria/Acell Pertussis 0.5 ml 11/06/24 00:35 11/06/24 00:53 Tet/Diphth/Pert-Adult 0.5ml Syringe IM 11/06/24 00:36 0.5 ml .ONCE ONE Administration ORDERS Category Date Time Status Hand XR left 2 views [XR hand LT 2V] Stat Exams 11/06/24 00:35 Completed Medical Decision Narrative: In summary, 24-year-old male presents to the ER with wound on the left hand and left forearm from dog bite from his personal dog who is fully vaccinated. On initial evaluation patient is hemodynamically stable, afebrile, puncture wound between the left 4th and 5th finger in the web space is hemostatic, there does not appear to be deep structure injury, however this is the deepest of his wounds and is near the joint so I want to evaluate this for possible osseous injury or foreign body with x-ray. Wounds on the left forearm are superficial abrasions, patient has full range of motion throughout the left arm, wrist, hand, and fingers though he has some discomfort with range of motion of the left wrist and left pinky secondary to the locations of his wounds. He did not fall on the hand/wrist or have other injury besides the bite. I have low suspicion for other injury. No evidence of neurovascular injury. Since both dogs are fully vaccinated including rabies, rabies prophylaxis is not indicated in this patient. I recommended Tdap booster since patient has not had one in a very long time reportedly. He was not sure that he wanted to take it but after counseling on risks and benefits, chose to take the booster. He has no known drug allergies so antibiotic prophylaxis was provided with Augmentin. Hand was soaked in saline/chlorhexidine to help clean the wound. I reevaluated after soaking and do not believe further intervention is indicated at this time. Bacitracin applied to the wound. X-ray left hand personally interpreted demonstrates no finding of foreign body, no osseous injury, see radiology read for final interpretation. Augmentin was prescribed, bacitracin provided to the patient for outpatient use. Patient was given instructions on symptomatic management, antibiotic use, wound care, follow up instructions, and return precautions for the emergency department. Patient indicated understanding and was discharged in stable condition. Critical Care Critical Care Time Critical Care Time: No
[2024-11-06] MEDS: AMOXICILLIN/CLAVULANATE POTASSIUM 875/125MG TABLET 1 EACH PO (00:52)
[2024-11-06] MEDS: TET/DIPHTH/PERT-ADULT 0.5ML SYRINGE 0.5 ML IM (00:53)
[2024-11-06] MEDS: BACITRACIN ZINC OINT 30GM TUBE TP (01:03)
[2024-11-06 01:11] VITALS: BP 128/81; PULSE 87; RESP 16; TEMP 36.4; O2SAT 97
== END 2024-11-06 01:16 | disposition home or self-care (01) ==
PROVIDERS: Emergency Provider Emergency Medicine
DX: S61.452A Open bite of left hand, initial encounter (principal); W54.0XXA Bitten by dog, initial encounter
CPT/HCPCS: 73120; 90715; 99283